=== PATIENT | male | born 1960 | race African-American/Black ===

== ENCOUNTER 2017-03-08 20:36 | Emergency (ER) | payer OTHER ==
[~2017-03-08] VITALS: Ht 198.1 cm; Wt 81.7 kg
[~2017-03-08 20:36] MED LIST: CENTRUM SILVER1 EAC2 PO; PAXIL10 MG
[2017-03-08 21:03] LABS: ABSOLUTE NEUTROPHILS 3.5 thou/uL (1.4-8.2); BASOPHILS 1.5 % (0.0-2.0); EOSINOPHILS 2.7 % (0.0-3.0); HEMATOCRIT 41.8 % (42.0-52.0); LYMPHOCYTES 46.3 % (24.0-44.0); MCH 30.6 pg (26.0-34.0); MCHC 33.4 g/dL (28.0-37.0); MCV 91.6 fL (80.0-100.0); MONOCYTES 5.4 % (1.0-8.0); PLATELET COUNT 270 thou/uL (150-400); POLYS 44.1 % (36.0-66.0); RBC 4.57 mil/uL (4.50-6.00); RDW 15.8 % (10.5-14.5); WBC 7.9 thou/uL (4.0-11.0)
[2017-03-08 21:07] LABS: MANUAL DIFF NO
[2017-03-08 21:17] LABS: CALCIUM 8.4 mg/dL (8.5-10.1); POTASSIUM 4.3 mmol/L (3.5-5.1)
[2017-03-08 21:21] LABS: ALBUMIN 3.7 g/dL (3.4-5.0); TOTAL BILIRUBIN 0.2 mg/dL (<0.1-1.0); TOTAL PROTEIN 7.4 g/dL (6.4-8.2)
[2017-03-08 21:58] LABS: URINE BILIRUBIN NEGATIVE (Negative); URINE BLOOD NEGATIVE (Negative); URINE COLOR YELLOW; URINE GLUCOSE-RANDOM* NEGATIVE (Negative); URINE KETONES NEGATIVE (Negative); URINE LEUKOCYTES-REFLEX NEGATIVE (Negative); URINE PROTEIN (DIPSTICK) NEGATIVE (Negative); URINE SPECIFIC GRAVITY >= 1.030 (1.003-1.035); URINE UROBILINOGEN 0.2 E.U./dl (0.2-1.0)
== END 2017-03-08 22:48 | disposition home or self-care (01) ==
LOC: ER 20:36
PROVIDERS: Emergency Medicine
DX: R10.32 Left lower quadrant pain (principal); F10.129 Alcohol abuse with intoxication, unspecified; F31.9 Bipolar disorder, unspecified; F17.210 Nicotine dependence, cigarettes, uncomplicated

== ENCOUNTER 2017-03-30 03:24 | Emergency (ER) | payer OTHER ==
[~2017-03-30] VITALS: Ht 198.1 cm; Wt 77.1 kg
[2017-03-30 04:15] LABS: ABSOLUTE NEUTROPHILS 2.9 thou/uL (1.4-8.2); BASOPHILS 1.4 % (0.0-2.0); EOSINOPHILS 2.8 % (0.0-3.0); HEMATOCRIT 38.2 % (42.0-52.0); HEMOGLOBIN 13.1 gm/dL (14.0-18.0); LYMPHOCYTES 45.8 % (24.0-44.0); MCH 31.2 pg (26.0-34.0); MCHC 34.3 g/dL (28.0-37.0); MONOCYTES 6.9 % (1.0-8.0); PLATELET COUNT 256 thou/uL (150-400); POLYS 43.1 % (36.0-66.0); RDW 15.5 % (10.5-14.5); WBC 6.7 thou/uL (4.0-11.0)
[2017-03-30 04:20] LABS: MANUAL DIFF NO
[2017-03-30 04:22] LABS: ANION GAP 10 mmol/L (7-16); BUN 13 mg/dL (7-18); CHLORIDE 106 mmol/L (98-107); CO2 25 mmol/L (21-32); GLUCOSE 90 mg/dL (74-106); POTASSIUM 3.6 mmol/L (3.5-5.1); SODIUM 141 mmol/L (136-145)
[2017-03-30 04:25] LABS: APTT 27.8 Seconds (24.5-32.8); PROTIME 10.2 Seconds (9.3-11.4)
[2017-03-30 04:26] LABS: ALBUMIN 3.7 g/dL (3.4-5.0); ALKALINE PHOSPHATASE 68 U/L (46-116); SALICYLATE < 2.8 mg/dL (2.8-20.0); SGOT 35 U/L (15-37); SGPT 26 U/L (30-65); TOTAL BILIRUBIN 0.7 mg/dL (<0.1-1.0); TOTAL PROTEIN 7.2 g/dL (6.4-8.2)
[2017-03-30 04:27] LABS: ACETAMINOPHEN < 2 ug/mL (10-30)
[2017-03-30] MEDS ORDERED: ACETAMINOPHEN-1 EAC1 PO (05:49)
[2017-03-30 08:16] LABS: URINE BILIRUBIN NEGATIVE (Negative); URINE BLOOD NEGATIVE (Negative); URINE COLOR YELLOW; URINE GLUCOSE-RANDOM* NEGATIVE (Negative); URINE KETONES NEGATIVE (Negative); URINE NITRITE NEGATIVE (Negative); URINE PROTEIN (DIPSTICK) NEGATIVE (Negative); URINE SPECIFIC GRAVITY <= 1.005 (1.003-1.035); URINE UROBILINOGEN 0.2 E.U./dl (0.2-1.0)
[2017-03-30 08:24] LABS: AMP/METHAMP Negative (Negative); BARBITURATES Negative (Negative); BENZODIAZEPINES Negative (Negative); COCAINE POSITIVE (Negative); METHADONE Negative (Negative); OPIATES Negative (Negative); PCP POSITIVE (Negative); THC Negative (Negative)
== END 2017-03-30 08:18 | disposition home or self-care (01) ==
LOC: ER 03:24
PROVIDERS: Emergency Medicine
DX: S02.2XXA Fracture of nasal bones, initial encounter for closed fracture (principal); S22.32XA Fracture of one rib, left side, initial encounter for closed fracture; F10.120 Alcohol abuse with intoxication, uncomplicated; F31.9 Bipolar disorder, unspecified; F17.210 Nicotine dependence, cigarettes, uncomplicated; F12.10 Cannabis abuse, uncomplicated; Y08.89XA Assault by other specified means, initial encounter; Y93.89 Activity, other specified; Y92.89 Other specified places as the place of occurrence of the external cause; Y99.8 Other external cause status

== ENCOUNTER 2017-06-05 16:41 | Inpatient (IN) | payer OTHER ==
[~2017-06-05] VITALS: Ht 6 cm; Wt 81.6 kg
--- NOTE | ~2017-06-05 | EKG ---
[address] [place] [address] ELECTROCARDIOGRAM REPORT Name: SELENA,JERRY Room #: 216-P ADM IN M.R.#: [id number] Admission: 06/05/17 Attend Phys: Harvey Figueredo MD Discharge: Date of : 58 Report #: [id number] THIS REPORT FOR: //name// [facility] ED Test Date: 2017-06-05 Test Time: 16:41:51 Pat Name: ZANDRA WALTERS Department: Room: [facility] Gender: M Manager Mining: Daja MAS : 1960 Requested By: Elijah Hinkle Order Number: [id number] MD: Dao Sarmiento Measurements Intervals [place] Rate: 59 P: -11 CO: 170 QRS: 52 QRSD: 87 T: 58 QT: 426 QTc: 422 Interpretive Statements Sinus rhythm Early repolarization No previous ECG available for comparison Electronically Signed On 06-06-2017 12:29:10 CDT by Dao Sarmiento [email or web address] <ELECTRONICALLY SIGNED> By: Dao Sarmiento MD, [facility] 06/06/17 1229 164 40 Dao Sarmiento MD, FACC /EPI
--- NOTE | ~2017-06-05 | HC ---
[facility] [place] [address] CONSULTATION Name: ZANDRA WALTERS Room #: 216-P [facility] IN M.R.#: [id number] Admission: 06/05/17 Attend Phys: Harvey Figueredo MD Discharge: 06/06/17 Date of : 58 Report #: [id number] THIS REPORT FOR: //name// CC: TRAVON physician/PCP Harvey Figueredo REASON FOR CONSULTATION: Chest pain. HISTORY OF PRESENT ILLNESS: The patient is a 57-year-old gentleman with a recent history of chest pain, I have been asked to see him in this regard. Apparently yesterday, he presented to the Emergency Department with sharp shooting left-sided chest pain. He thought he had been "shot." This occurred after a day of drug use including crack cocaine and methamphetamines. He was seen in the Emergency Department where his EKG was normal and a troponin was minimally elevated at 0.09. He is currently pain free without specific therapy. Serial troponin levels have remained unchanged. Denies a past cardiac history. He denies heart failure symptoms including orthopnea, paroxysmal nocturnal dyspnea or lower extremity edema. MEDICATIONS: He takes no medicines on a regular basis. ALLERGIES: No known drug allergies. SOCIAL HISTORY: He is a smoker and drinker. FAMILY HISTORY: Unremarkable for premature coronary artery disease. REVIEW OF SYSTEMS: All systems negative except as that noted above. PHYSICAL EXAMINATION: GENERAL: He is a pleasant gentleman who is alert. He is in no distress, pain free. VITAL SIGNS: Blood pressure is 138/82, heart rate is 84 and regular and he is afebrile. HEENT: There are neither xanthelasma, subcutaneous xanthomata, oral mucosal or digital cyanosis or kyphoscoliosis present. CHEST: Clear to auscultation and percussion. CARDIAC: Regular rate and rhythm with normal S1 and S2. No murmurs, gallops or rubs. ABDOMEN: Soft and nontender. EXTREMITIES: Without cyanosis, clubbing or edema. Radial pulses are 2+. NEUROLOGICAL: He is alert with a nonfocal exam. LABORATORY DATA: Sodium is 138, potassium 4.1 and alcohol of 226. Pro-BNP of 75. White count 6.9, hemoglobin 14, hematocrit 42 and platelet count 230. RADIOLOGICAL DATA: Chest x-ray is normal. [address] [address] CONSULTATION Name: ZANDRA WALTERS Room #: 216-P [facility] IN .R.#: [id number] Admission: 06/05/17 Attend Phys: Harvey Figueredo MD Discharge: 06/06/17 Date of : 58 Report #: [id number] IMPRESSION: 1. Chest pain, atypical for ischemia. 2. Alcohol, cocaine and methamphetamines intoxication. RECOMMENDATIONS: At this point, given the atypical nature of his symptoms and nondiagnostic cardiac enzymes for ischemia or infarction, I would recommend avoidance of methamphetamine and cocaine as well as moderation in alcohol intake. No additional testing is needed at this point unless his pain or symptoms recurred in the absence of illicit drugs. Thank you for asking me to participate in the patient's care. I have discussed these issues with him. <ELECTRONICALLY SIGNED> By: Dao Sarmiento MD, FACC 06/07/17 1050 0809 2118 Dao Sarmiento MD, FACC /nt
--- NOTE | ~2017-06-05 | 2DMMODE ---
[facility] [address] [facility] [place] [address] 2 D/M-MODE ECHOCARDIOGRAM Name: ZANDRA WALTERS Room #: 216-P ADM IN .R.#: [id number] Admission: 06/05/17 Attend Phys: Harvey Figueredo MD Discharge: Date of : 58 Date of Service: 06/06/17 1157 Report #: [id number] THIS REPORT FOR: //name// APPROVED REPORT Study performed: 06/06/2017 09:39:31 EXAM: Comprehensive 2D, Doppler, and color-flow Echocardiogram Patient Location: Bedside Room #: 216 Status: on-call BSA: 2.08 HR: 84 bpm BP: 1383/82 mmHg Rhythm: NSR Other Information Study Quality: Good Risk Factors: Cardiac Risk Factors: Smoking, ETOH, Cocaine Indications Chest Pain 2D Dimensions RVDd: 30.60 mm LVEF(%): 66.29 (>50%) IVSd: 9.99 (7-11mm) LVOT Diam: 19.50 (18-24mm) LVDd: 45.24 mm PWd: 10.35 (7-11mm) Ascending Ao: 27.06 (22-36mm) LVDs: 28.75 (25-40mm) Aortic Root: 27.13 mm LV Single Plane 4CH: 70.00 % LV Single Plane 2CH: 68.46 % West's LVEF: 69.23 % Biplane EF: 70.0 % Volumes Left Atrial Volume (Systole) Single Plane 4CH: 42.56 mL Single Plane 2CH: 42.13 mL LA ESV Index: 22.00 mL/m2 Aortic Valve AoV Peak Dany.: 1.50 m/s AO Peak Gr.: 11.41 mmHg LVOT Max P.66 mmHg LVOT Max V: 0.96 m/s [facility] [place] [address] 2 D/M-MODE ECHOCARDIOGRAM Name: KALEE WALTERSRY Room #: 216-P [facility] IN ..#: [id number] Admission: 06/05/17 Attend Phys: Harvey Figueredo MD Discharge: Date of : 58 Date of Service: 06/06/17 1157 Report #: [id number] ONEIL Vmax: 1.90 cm2 Mitral Valve E/A Ratio: 1.1 MV Decel. Time: 318.67 ms MV E Max Dany.: 0.95 m/s MV A Dany.: 0.85 m/s MV PHT: 92.42 ms IVRT: 59.98 ms TDI E/Lateral E': 8.64 E/Medial E': 10.56 Medial E' Dany.: 0.09 m/s Lateral E' Dany.: 0.11 m/s Pulmonary Valve PV Peak Dany.: 1.31 m/s PV Peak Gr.: 6.91 mmHg Pulmonary Vein P Vein S: 0.89 m/s P Vein A: 0.23 m/s P Vein D: 0.57 m/s P Vein A Dur.: 117.6 msec P Vein S/D Ratio: 1.56 Tricuspid Valve RAP Estimate: 5.00 mmHg Left Ventricle The left ventricle is normal size. There is normal LV segmental wall motion. There is normal left ventricular wall thickness. Left ventricular systolic function is normal. The left ventricular ejection fraction is within the normal range. LVEF is 65-70%. normal diastolic function Right Ventricle The right ventricle is normal size. The right ventricular systolic function is normal. Atria The left atrium size is normal. The right atrium size is normal. Aortic Valve The aortic valve is normal in structure. No aortic regurgitation is present. There is no aortic valvular stenosis. Mitral Valve [facility] [address] [place] [address] 2 D/M-MODE ECHOCARDIOGRAM Name: ZANDRA WALTERS Room #: 216-P [facility] IN [facility]#: [id number] Admission: 06/05/17 Attend Phys: Harvey Figueredo MD Discharge: Date of : 58 Date of Service: 06/06/17 1157 Report #: [id number] The mitral valve is normal in structure. There is no mitral valve regurgitation noted. No evidence of mitral valve stenosis. Tricuspid Valve The tricuspid valve is normal in structure. Trace tricuspid regurgitation. Pulmonic Valve The pulmonary valve is normal in structure. There is no pulmonic valvular regurgitation. Great Vessels The aortic root is normal in size. IVC is normal in size and collapses with >50% inspiration Pericardium There is no pericardial effusion. <Conclusion> 1. Normal echocardiogram with Doppler. EF 65% 2. No pericardial effusion <ELECTRONICALLY SIGNED> By: Dao Sarmiento MD, FACC 06/06/17 1157 1157 115 Dao Sarmiento MD, FACC /INF
[~2017-06-05 16:41] MED LIST changes: +ACETAMINOPHEN-1 EAC1 PO
[2017-06-05 16:51] VITALS: BP 123/88
[2017-06-05 17:03] LABS: ABSOLUTE NEUTROPHILS 5.1 thou/uL (1.4-8.2); BASOPHILS 1.7 % (0.0-2.0); EOSINOPHILS 0.9 % (0.0-3.0); HEMATOCRIT 42.1 % (42.0-52.0); HEMOGLOBIN 14.5 gm/dL (14.0-18.0); LYMPHOCYTES 31.6 % (24.0-44.0); MCH 31.8 pg (26.0-34.0); MCHC 34.4 g/dL (28.0-37.0); MCV 92.5 fL (80.0-100.0); MONOCYTES 4.8 % (1.0-8.0); PLATELET COUNT 223 thou/uL (150-400); RBC 4.55 mil/uL (4.50-6.00); RDW 14.4 % (10.5-14.5); WBC 8.4 thou/uL (4.0-11.0)
[2017-06-05 17:12] LABS: MANUAL DIFF NO
[2017-06-05 17:18] LABS: CALCIUM 8.7 mg/dL (8.5-10.1); CREATININE 1.2 mg/dL (0.7-1.3); POTASSIUM 4.1 mmol/L (3.5-5.1)
[2017-06-05 17:27] LABS: TROPONIN-I 0.09 ng/mL (<0.04-0.07)
[2017-06-05 18:34] LABS: AMP/METHAMP POSITIVE (Negative); BARBITURATES Negative (Negative); BENZODIAZEPINES Negative (Negative); COCAINE POSITIVE (Negative); METHADONE Negative (Negative); OPIATES Negative (Negative); PCP Negative (Negative); THC Negative (Negative)
[2017-06-05 18:45] VITALS: BP 139/85
[2017-06-05 20:40] VITALS: BP 129/93
[2017-06-05 23:39] VITALS: BP 126/82
[2017-06-06] VITALS (8 sets, daily range): BP systolic 134–142; BP diastolic 78–82
[2017-06-06 05:35] LABS: HEMATOCRIT 42.1 % (42.0-52.0); HEMOGLOBIN 14.2 gm/dL (14.0-18.0); MCHC 33.7 g/dL (28.0-37.0); RBC 4.58 mil/uL (4.50-6.00); RDW 14.6 % (10.5-14.5); WBC 6.9 thou/uL (4.0-11.0)
[2017-06-06 05:57] LABS: CALCIUM 8.5 mg/dL (8.5-10.1); POTASSIUM 4.1 mmol/L (3.5-5.1); TROPONIN-I 0.08 ng/mL (<0.04-0.07)
== END 2017-06-06 14:25 | disposition home or self-care (01) | DRG 313 ==
LOC: ER 16:41 → EROBS 18:08 → 2N 19:24
PROVIDERS: Hospitalist; Physician Assistant
DX: R07.89 Other chest pain (principal); G92 Toxic encephalopathy; F31.9 Bipolar disorder, unspecified; F17.210 Nicotine dependence, cigarettes, uncomplicated; F10.120 Alcohol abuse with intoxication, uncomplicated; F14.120 Cocaine abuse with intoxication, uncomplicated; F15.120 Other stimulant abuse with intoxication, uncomplicated; Z23 Encounter for immunization
CPT/HCPCS: 10081

== ENCOUNTER 2017-06-14 18:42 | Emergency (ER) | payer OTHER ==
[~2017-06-14] VITALS: Ht 195.6 cm; Wt 81.7 kg
[2017-06-14] MEDS ORDERED: TRAMADOL 50 MG50 MG PO (21:36)
[2017-06-14] MEDS ORDERED: PENICILLIN V P500 MG PO (21:36)
== END 2017-06-14 22:50 | disposition home or self-care (01) ==
LOC: ER 18:42
DX: S01.511A Laceration without foreign body of lip, initial encounter (principal); F10.129 Alcohol abuse with intoxication, unspecified; S03.2XXA Dislocation of tooth, initial encounter; F32.9 Major depressive disorder, single episode, unspecified; F31.9 Bipolar disorder, unspecified; F17.210 Nicotine dependence, cigarettes, uncomplicated; F10.10 Alcohol abuse, uncomplicated; Y08.89XA Assault by other specified means, initial encounter; Y93.89 Activity, other specified; Y92.89 Other specified places as the place of occurrence of the external cause; Y99.8 Other external cause status

== ENCOUNTER 2017-11-04 17:39 | Emergency (ER) | payer OTHER ==
[~2017-11-04] VITALS: Ht 195.6 cm; Wt 90.7 kg
[~2017-11-04 17:39] MED LIST changes: +PENICILLIN V P500 MG PO; +TRAMADOL 50 MG50 MG PO
[2017-11-04 18:16] LABS: ABSOLUTE NEUTROPHILS 3.5 thou/uL (1.4-8.2); EOSINOPHILS 1.5 % (0.0-3.0); HEMATOCRIT 43.8 % (42.0-52.0); HEMOGLOBIN 14.8 gm/dL (14.0-18.0); MCH 30.7 pg (26.0-34.0); MCHC 33.8 g/dL (28.0-37.0); MCV 90.8 fL (80.0-100.0); MONOCYTES 6.7 % (1.0-8.0); PLATELET COUNT 260 thou/uL (150-400); POLYS 51.8 % (36.0-66.0); RBC 4.82 mil/uL (4.50-6.00); RDW 15.4 % (10.5-14.5); WBC 6.8 thou/uL (4.0-11.0)
[2017-11-04 18:23] LABS: CALCIUM 8.8 mg/dL (8.5-10.1); CREATININE 0.9 mg/dL (0.7-1.3); POTASSIUM 4.2 mmol/L (3.5-5.1)
[2017-11-04 18:28] LABS: ALBUMIN 4.1 g/dL (3.4-5.0); TOTAL BILIRUBIN 0.7 mg/dL (<0.1-1.0); TOTAL PROTEIN 8.1 g/dL (6.4-8.2)
[2017-11-04 18:36] LABS: PROTIME 10.4 Seconds (9.3-11.4)
[2017-11-04 18:38] LABS: URINE BILIRUBIN NEGATIVE (Negative); URINE BLOOD NEGATIVE (Negative); URINE CLARITY CLEAR; URINE COLOR YELLOW; URINE GLUCOSE-RANDOM* NEGATIVE (Negative); URINE KETONES NEGATIVE (Negative); URINE LEUKOCYTES NEGATIVE (Negative); URINE NITRITE NEGATIVE (Negative); URINE PROTEIN (DIPSTICK) NEGATIVE (Negative); URINE SPECIFIC GRAVITY <= 1.005 (1.005-1.035); URINE UROBILINOGEN 0.2 E.U./dl (0.2-1.0)
[2017-11-04 20:14] VITALS: BP 136/91
== END 2017-11-04 20:16 ==
LOC: ER 17:39
PROVIDERS: Physician Assistant
DX: K64.9 Unspecified hemorrhoids (principal); F31.9 Bipolar disorder, unspecified; F17.210 Nicotine dependence, cigarettes, uncomplicated

== ENCOUNTER 2021-08-30 13:47 | Inpatient (IN) | payer OTHER ==
[~2021-08-30] VITALS: Ht 190.5 cm; Wt 74.8 kg
--- NOTE | ~2021-08-30 | EMS ---
[facility] [address] [place] [address] EMS Patient Care Report Name: ZANDRA WALTERS Room #: 170-23 [facility] IN M.R.#: [id number] Admission: 08/30/21 Attend Phys: Marty Patterson MD Discharge: 09/01/21 Date of : 58 Report #: [id number] THIS REPORT FOR: //name// Report Transmitted: 09/02/2021 14:55 EMS Care Summary [place], [place]/[facility] Incident [id number] @ 08/30/2021 13:08 Incident Location [address] [place], [place] [id number] Patient ZANDRA HENAO Female, 61 Years 1960 Patient Address [address] [place] [address] Patient History None Reported, Patient Allergies No known allergies, Patient Medications None Reported, Chief Complaint WEAKNES/ SOA Disposition Transported No Lights/[place] Dispatch Reason Breathing Problem Transported To [facility] Narrative PT FOUND SITTING AT TOP OF STAIRS NOT WANTING TO GO TO THE HOSP. PT'S FAMILY STATE THAT PT IS REAL WEAK AND GETS SOA WITH VERY LITTE ASSERTION. [facility] [address] [place] [address] EMS Patient Care Report Name: ZANDRA WALTERS Room #: 170-23 [facility] IN Miguel.Valerie.#: [id number] Admission: 08/30/21 Attend Phys: Marty Patterson MD Discharge: 09/01/21 Date of : 58 Report #: [id number] AFTER TALKING TO PT AND PT DECIDED TO GO. PT WALKED THE 4 STEPS TO THE [facility] HE BECAME SOA AND STATED TO FF THAT IT PROB A GOOD IDEA TO GO TO [facility] SINCE THAT JUST WORE ME OUT. NO OTHER CHANGES ENROUTE. Initial Vitals @13:22P: 92,R: 16,BP: 142/92,Pain: 0/10,GCS: 15,SpO2: 96,Revised Trauma: 12, @13:23P: 108,R: 16,BP: 131/87,Pain: 0/10,GCS: 15,SpO2: 98,Revised Trauma: 12, @PTAP: 92,R: 16,BP: 135/85,Pain: 0/10,GCS: 15,Glucose: 66,SpO2: 86,Revised Trauma: 12, Assessments @13:21MENTAL:No Abnormalities,SKIN:No Abnormalities,HEENT:Head/Face: No Abnormalities,Eyes: No Abnormalities,Neck/Airway: No Abnormalities,LUNG SOUNDS:General: No Abnormalities,Left Upper: No Abnormalities,Right Upper: No Abnormalities,Left Lower: No Abnormalities,Right Lower: No Abnormalities,ABDOMEN:General: No Abnormalities,Left Upper: No Abnormalities,Right Upper: No Abnormalities,Left Lower: No Abnormalities,Right Lower: No Abnormalities,PELVIS//GI:No Abnormalities,EXTREMITIES:Left Arm: No Abnormalities,Right Arm: No Abnormalities,Left Leg: No Abnormalities,Right Leg: No Abnormalities,PULSE:NEURO:Other, Impression Generalized Weakness Procedures @13:21 ALS Assessment Response: UnchangedSucceeded Timeline CLERICAL SECRETARY,BP: 135/85 M,PULSE: 92,RR: 16 R,SPO2: 86 Ox,ETCO2: ,B,PAIN: 0,GCS: 15, 13:03,Call Received 13:03,Dispatch Notified 13:08,Dispatched 13:08,En Route 13:19,On Scene 13:20,At Patient 13:21,ALS Assessment,Response: UnchangedSucceeded, 13:22,BP: 142/92 M,PULSE: 92,RR: 16 R,SPO2: 96 Ox,ETCO2: ,BG: ,PAIN: 0,GCS: 15, 13:23,BP: 131/87 M,PULSE: 108,RR: 16 R,SPO2: 98 Ox,ETCO2: ,BG: ,PAIN: 0,GCS: 15, 13:30,Depart Scene 13:42,At Destination 13:57,Call Closed Disclaimer [address] [address] EMS Patient Care Report Name: ZANDRA WALTERS Room #: 170-[facility] IN .R.#: [id number] Admission: 08/30/21 Attend Phys: Marty Patterson MD Discharge: 09/01/21 Date of : 58 Report #: [id number] v1.1 Copyright 2020 [employer] This EMS Care Summary contains data elements from the applicable legal record (which may be displayed differently). It is designed to provide pertinent information for the following purposes: continuity of care, clinical quality, and state data reporting. The complete legal record is available to ED staff and administrators of the receiving hospital in [facility]'s Patient Tracker. All data is provided "as is."
[2021-08-30 13:49] VITALS: BP 152/94
[2021-08-30 14:54] LABS: ABSOLUTE NEUTROPHILS 4.1 thou/uL (1.4-8.2); BASOPHILS 1.2 % (0.0-2.0); EOSINOPHILS 2.2 % (0.0-3.0); HEMATOCRIT 48.1 % (42.0-52.0); HEMOGLOBIN 15.8 gm/dL (14.0-18.0); LYMPHOCYTES 21.1 % (24.0-44.0); MCH 31.4 pg (26.0-34.0); MCV 95.3 fL (80.0-100.0); MONOCYTES 14.5 % (1.0-8.0); PLATELET COUNT 295 thou/uL (150-400); RBC 5.04 mil/uL (4.50-6.00); RDW 13.4 % (10.5-14.5); WBC 6.8 thou/uL (4.0-11.0)
[2021-08-30 15:09] LABS: CALCIUM 9.3 mg/dL (8.5-10.1); CREATININE 1.2 mg/dL (0.7-1.3); POTASSIUM 4.6 mmol/L (3.5-5.1)
[2021-08-30 15:15] LABS: ALBUMIN 3.9 g/dL (3.4-5.0); TOTAL BILIRUBIN 1.6 mg/dL (0.2-1.0)
[2021-08-30 18:39] VITALS: BP 152/94
[2021-08-30 20:00] VITALS: BP 101/61
[2021-08-31 00:49] VITALS: BP 136/73
[2021-08-31 08:10] VITALS: BP 111/67
[2021-08-31 09:39] LABS: CHOLESTEROL 176 mg/dL (<200); HDL CHOLESTEROL 76 mg/dL (>40); LDL CHOLESTEROL 84 mg/dL (<100); TC:HDL 2.3 Ratio (Not establshd); TRIGLYCERIDE 81 mg/dL (<150); VLDL 16 mg/dL (<40)
[2021-08-31 09:40] LABS: SERUM ASSESSMENT Clear
[2021-08-31 12:53] VITALS: BP 111/67
[2021-08-31 16:16] VITALS: BP 111/67
[2021-08-31 20:00] VITALS: BP 134/79
[2021-09-01] VITALS: BP 130/79
[2021-09-01 04:00] VITALS: BP 129/79
[2021-09-01 08:14] VITALS: BP 128/77
[2021-09-01] MEDS ORDERED: SPIRIVA18 MCG INH (12:09)
[2021-09-01] MEDS ORDERED: PROAIR HFA8.5 GM INH (12:09)
[2021-09-01] MEDS ORDERED: PREDNISONE 20 M20 MG PO (12:09)
[2021-09-01] MEDS ORDERED: CEFDINIR300 MG PO (12:09)
[2021-09-01] MEDS ORDERED: ADVAIR 250-501 EACH INH (12:09)
[2021-09-01 13:14] VITALS: BP 135/82
--- NOTE | 2021-09-01 14:50 | NUR ---
PT A/O X 4. DC TO HOME TODAY WITH 5 RX SENT TO HIS PHARMACY. PT GIVEN NUMBERS TO FOLLOW UP WITH [facility] FOR FUTURE VISITS. PT AMBULATORY WITH STEADY GAIT FROM ER ROOM 23. IV AND MONITOR DC'D PRIOR TO DISCHARGE.
[2021-09-01 14:52] VITALS: BP 135/82
--- NOTE | 2021-09-02 07:15 | EKG ---
[address] [address] ELECTROCARDIOGRAM REPORT Name: ZANDRA WALTERS Room #: 170-23 [facility] IN M.R.#: [id number] Admission: 08/30/21 Attend Phys: Marty Patterson MD Discharge: 09/01/21 Date of : 58 Report #: [id number] [facility] ED Test Date: 2021-08-30 Test Time: 16:12:13 Pat Name: ZANDRA WALTERS Department: Room: 170 Gender: M Pay Station Attendant: YOANDY : 1960 Requested By: Buddy Gonzalez Order Number: [id number] MD: Rashad Arnett Measurements Intervals [place] Rate: 79 P: 85 [place]: 171 QRS: 83 QRSD: 82 T: 79 QT: 399 QTc: 458 Interpretive Statements Sinus rhythm Consider right atrial enlargement Borderline right axis deviation Compared to ECG 06/05/2017 16:41:51 ST (T wave) deviation now present Myocardial infarct finding now present Early repolarization no longer present Electronically Signed On 09-02-2021 7:15:10 MILD [employer]ABILITIES TEACHER by Rashad Arnett [email or web address] <ELECTRONICALLY SIGNED> By: Rashad Arnett MD, FACC 09/02/21 0715 161 11 Rashad Arnett MD, [facility] /EPI
--- NOTE | 2021-09-02 07:22 | 2DMMODE ---
[facility] [place] [address] 2 D/M-MODE ECHOCARDIOGRAM Name: ZANDRA WALTERS Room #: 170-[facility] IN .R.#: [id number] Admission: 08/30/21 Attend Phys: Marty Patterson MD Discharge: 09/01/21 Date of : 58 Report #: [id number] THIS REPORT FOR: cc: TRAVON - No family physician/PCP TRAVON - No family physician/PCP Rashad Arnett MD [facility] ~ APPROVED REPORT Study performed: 09/01/2021 08:09:39 EXAM: Comprehensive 2D, Doppler, and color-flow Echocardiogram Patient Location: ER Status: on-call HR: 75 bpm BP: 129/79 mmHg Rhythm: NSR Other Information Study Quality: Adequate Technically limited study due to heavy coughing/unable to position. Indications Short of breath, COPD. 2D Dimensions IVSd: 8.21 (7-11mm) LVOT Diam: 20.11 (18-24mm) LVDd: 44.29 mm PWd: 8.73 (7-11mm) LVDs: 33.08 (25-40mm) Left Atrium: 28.23 (27-40mm) Aortic Root: 27.70 mm Aortic Valve AoV Peak Dany.: 1.22 m/s AO Peak Gr.: 5.99 mmHg LVOT Max P.32 mmHg LVOT Max V: 1.04 m/s ONEIL Vmax: 2.70 cm2 Mitral Valve E/A Ratio: 0.8 MV Decel. Time: 301.58 ms MV E Max Dany.: 0.51 m/s [facility] [address] [place] [address] 2 D/M-MODE ECHOCARDIOGRAM Name: ZANDRA WALTERS Room #: 170-23 [facility] IN ..#: [id number] Admission: 08/30/21 Attend Phys: Miguel Yang Discharge: 09/01/21 Date of : 58 Report #: [id number] MV A Dany.: 0.66 m/s MV PHT: 87.46 ms Pulmonary Valve PV Peak Dany.: 0.79 m/s PV Peak Gr.: 2.51 mmHg Tricuspid Valve TR Peak Dany.: 2.27 m/s RAP Estimate: 5.00 mmHg TR Peak Gr.: 21.00 mmHg PA Pressure: 26.00 mmHg Left Ventricle The left ventricle is normal size. There is normal left ventricular wall thickness. Left ventricular systolic function is normal. LVEF is 50-55%. Mild diastolic dysfunction is present (impaired relaxation pattern). Right Ventricle The right ventricle is normal size. The right ventricular systolic function is normal. Atria The left atrium size is normal. The right atrium size is normal. Aortic Valve The aortic valve is normal in structure. No aortic regurgitation is present. There is no aortic valvular stenosis. Mitral Valve The mitral valve is normal in structure. There is no mitral valve regurgitation noted. No evidence of mitral valve stenosis. Tricuspid Valve The tricuspid valve is normal in structure. Trace tricuspid regurgitation. Estimated PAP is 26mmHg. Pulmonic Valve The pulmonary valve is normal in structure. Trace pulmonic regurgitation. Great Vessels The aortic root is normal in size. Ascending aorta is not well visualized. IVC is normal in size and collapses >50% with inspiration. [facility] [place] [address] [address] [place] [address] 2 D/M-MODE ECHOCARDIOGRAM Name: ZANDRA WALTERS Room #: 170-[facility] IN M.R.#: [id number] Admission: 08/30/21 Attend Phys: Miguel Yang Discharge: 09/01/21 Date of : 58 Report #: [id number] Pericardium There is no pericardial effusion. <Conclusion> Normal left ventricle size/wall thickness Ejection fraction 55% Normal right ventricle size/function Normal atrial size Normal aortic/mitral valve structure and function Trace tricuspid valve insufficiency Pulmonary systolic pressure estimated 26 mmHg No pericardial effusion Normal aortic root size <ELECTRONICALLY SIGNED> By: Rashad Arnett MD, [facility] 09/02/21 0722 0722 0722 Rashad Arnett MD, FACC /INF
--- NOTE | 2021-09-02 16:38 | HC ---
[facility] [place] [address] CONSULTATION Name: ZANDRA WALTERS Room [facility]: [facility] IN M.R.#: [id number] Admission: 08/30/21 Attend Phys: Marty Patterson MD Discharge: 09/01/21 Date of : 58 Report #: [id number] THIS REPORT FOR: cc: FAM - No family physician/PCP FAM - No family physician/PCP Sloan Archer MD [facility] ~ DATE OF SERVICE: 08/30/2021 HISTORY OF PRESENT ILLNESS: The patient is a 61-year-old male who comes in apparently for some nonspecific complaints, some progressive shortness of breath that he states mostly at night, says he has not felt well and has had some weight loss. Predominantly more symptoms at night. He denies chest pain or anginal complaints. He has fairly abnormal EKG, but does not appear to be an acute event. He states he does not have cardiac history. He is a longtime smoker and drinker and trying to get disability. He somehow lives independently. He takes no medications. He has not had a vaccination, but he is COVID negative at least initially here on the rapid. He denies any surgeries. Apparently, there is some history of alcohol, depression, bipolar disorder and some colon issue. LABORATORY WORK: Potassium is 4.6, creatinine 1.2. Troponin high sensitivity is 179, so trivially elevated. BNP is 163, H and H is 15 and 48. No white count. COVID is negative. REVIEW OF SYSTEMS: Essentially negative. He is really a terrible historian. FAMILY HISTORY: He does not believe there has been any premature coronary disease. SOCIAL HISTORY: He lives somewhat independently. He has children. He is not . Apparently a daily smoker and drinker. PHYSICAL EXAMINATION: GENERAL: He is in no acute distress. VITAL SIGNS: Blood pressure 150/90, pulse is 80. HEENT: Show xanthelasmas. Pharynx is clear. NECK: Shows preserved upstrokes without JVD or bruits. LUNGS: Clear anteriorly with prolonged expiratory phase. CARDIAC: Distant heart tones S1, S2. ABDOMEN: Soft. No HSM or abdominal bruit. EXTREMITIES: Show diminished pulses, but intact, extremely slender extremities. NEUROLOGIC: Appears to be intact and nonfocal, but slow to respond, which may be baseline. ASSESSMENT: 1. Chronic obstructive pulmonary disease. [facility] [address] [place] [address] CONSULTATION Name: ZANDRA WALTERS Room #: 170-23 [facility] IN M.R.#: [id number] Admission: 08/30/21 Attend Phys: Matry Patterson MD Discharge: 09/01/21 Date of : 58 Report #: [id number] 2. 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 3. Hypertension. 4. History of bipolar disorder/depression. RECOMMENDATIONS AND PLAN: Continue to obtain serial troponin, but I do not believe this is definitely not an acute event as risk factors for coronary disease will be difficult to evaluate currently and I am not eliciting any sort of anginal type symptoms. This is a Мария weekend and it will be difficult to get any studies on Мария. We would certainly consider echo. We will repeat the EKG and troponin in the morning and follow CT scan to check for PE and possibly further evaluation of his hilar mass. Can consider Lovenox here until there is more clarity. We will follow with you. <ELECTRONICALLY SIGNED> By: Sloan Archer MD, FACC 09/02/21 1638 1619 2159 Sloan Archer MD, FACC /nt
== END 2021-09-01 14:52 | disposition home or self-care (01) | DRG 281 ==
LOC: ER 13:47 → EROBS 17:17 → ER 08-31 10:25 → EROBS 08-31 10:25
PROVIDERS: Emergency Medicine; Nurse Practitioner Adult Health; ADMIT Hospitalist; ATTEND Hospitalist
DX: I21.4 Non-ST elevation (NSTEMI) myocardial infarction (principal); J44.1 Chronic obstructive pulmonary disease with (acute) exacerbation; F31.9 Bipolar disorder, unspecified; R91.1 Solitary pulmonary nodule; Z20.822 Contact with and (suspected) exposure to COVID-19